=== PATIENT | female | born 1990 | race Hispanic/Latino ===

== ENCOUNTER 2021-07-21 01:53 | Day surgery (SDC) | payer OTHER, SELFPAY ==
--- NOTE | 2021-07-17 13:40 | PC.NURSE ---
Report to the Outpatient Waiting Room, entrance under the green pavilion located off [facility], at time _1030 on date _07/21/21 . OR Time: ___1230 . - You and your visitor will be asked a series of questions to screen for COVID 19 for your protection. - A mask is required within the hospital. Preoperative COVID Testing Requirements: No COVID Test needed if: (proof is required; if not received patient will have Rapid Test prior to entry) - Patient has received COVID Vaccine at least 14 days prior to procedure date or - Patient has positive COVID test result within last 90 days of surgery date. COVID Test needed if above criteria is not met If not COVID vaccinated a COVID test must be conducted within 72 hours of surgery and patient is asked to isolate self from time of testing until procedure. You will go to the [facility] for your COVID testing. The [facility] site is located at the corner of [address] [facility]. You will only be called if COVID results are positive and your surgeon may reschedule your elective surgery date. Patients may have clear liquids (water, carbonated beverages, clear teas, apple juice) until 3 hours prior to surgery with a maximum of 20 ounces. - No food from midnight until time of surgery - Infants may have breast milk until 4 hours before surgery, formula 6 hours prior to surgery. - Children will be allowed to drink immediately following surgery. If applicable, please bring a bottle or sippy cup to assist with drinking. Juice, water, soda, and popsicles are readily available. For infants on formula, please bring formula the day of surgery. Pacifiers are allowed. Take the following medications with a SIP of water the morning of surgery: _LAMOTRIGINE Medications to discontinue per physician ____ALL VITAMINS AND SUPPLEMENTS 3 DAYS PRE Date to take last dose___07/17/21 Please no make-up, nail bhutanese, hairspray, perfume, deodorant, or body powder the day of surgery. No jewelry (including any body piercings) or valuables the day of surgery, leave them at home. Please take a shower or bath the night before, or the morning of, surgery with an antibacterial soap. Wear comfortable, loose fitting clothing. Children are encouraged to wear pajamas. - Jewelry must be removed prior to entering the operating room. Rings and piercings that are not removed may be cut off. - The hospital will not accept responsibility for valuables. - Please leave all valuables, including medications, at home the day of surgery. If you are going home after surgery, a licensed student truck driver must drive you home. - NO public transportation without another adult. - We recommend that an adult stay with you for 24 hours following discharge. - We also recommend that you do not drive, make important decision, drink alcoholic beverages, or take any drugs that were not prescribed by your health care provider for at least 24 hours after your discharge time. For Pediatric surgeries, we recommend two adults accompany the child home (only one inside the building at this time). One visitor will be allowed to accompany the patient into the hospital. Patients visitor will be instructed to remain with patient at all times or leave the building. We will allow the visitor to come back to the postoperative area when patient is ready. Follow any additional instructions given to you from your surgeon. Telephone instructions given to __PATIENT and asked if any additional questions and then verbalized understanding. Patient advised to call surgeon office or pre surgery nurse liaison [phone] if any additional questions.
[2021-07-17 13:51] VITALS: BMI 27.1
[2021-07-21] VITALS (7 sets, daily range): BP systolic 101–121; BP diastolic 46–63; PULSE 77–104; RESP 10–16; TEMP 36.1–36.9; O2SAT 99–100
--- NOTE | 2021-07-21 11:16 | WPDHPUPDATE1 ---
History and Physical Update Update Date/Time: 07/21/21 11:16 History and Physical has been reviewed, including an updated exam of the patient. There are NO changes in the patient's condition. Risks, benefits, and alternatives have been discussed and questions answered. Patient agrees to proceed with procedure.
--- NOTE | 2021-07-21 11:34 | W.PM.PROC2 ---
Procedure Note - Detailed Date of Procedure 07/21/21 Pre-op Diagnosis hx of breast augmentation Post-op Diagnosis Same Procedure Performed Bilateral breast implant removal Surgeon Vipul Gill MD Anesthesia General Findings Previous implants 550cc silicone smooth. No evidence of rupture. Description of Procedure Preoperatively the risks, benefits, alternatives were discussed in extensive detail. I wanted her to be very realistic about the risks involved as well as expectations. Previously she had an axillary incision would like proceed without IMF for removal. She does not wish to use drains. She understands the date on this and understands there is risk of seroma which would ultimately need surgical intervention to drain. She is willing to accept this risk. I made sure answered all of her questions to her satisfaction today. We discussed aftercare with her and her . Consent obtained. Patient was taken to the operating room placed supine on the operating room table. Anesthesia provided by anesthesiology and prepped and draped in a standard sterile fashion. Surgical time-out was taken. 1% lidocaine and 0.25% Marcaine with epinephrine was used anesthetize locally. Fifteen blade used to make an IMF incision. Dissection was continued until the implant was identified and removed. I removed a portion of the capsule as well. Irrigated copiously with 3 L of saline on TUR tubing. I then closed using 2-0 Vicryl followed by 3-0 Monocryl in a running subcuticular 4-0 Monocryl and tissue glue. Surgical bra was placed. Patient was awoke and taken to the PACU without difficulty. All instrument sponge counts were correct at the end of the case. Estimated Blood Loss 15 Drains No Packing No Pathology None sent Complications No immediate complications Condition Stable Disposition PACU
--- NOTE | 2021-07-21 11:59 | WPDANESEPPF ---
Anes - Initial Pre Proc Eval Procedure: Operation Date: 07/21/21 12:30 Proposed Procedures p Removal Bilateral Breast Implants - Vipul Gill MD Date/Time: 07/21/21 11:59 Surgeon: Vipul Gill MD Pre Op Diagnosis: hx of breast augmentation Patient Data Age: 31 Gender: F Height: 1.57 m Weight: 69 kg Last Vital Signs Temp 98.5 F 07/21/21 10:52 Pulse 78 07/21/21 10:52 Resp 16 07/21/21 10:52 BP 115/46 L 07/21/21 10:52 Pulse Ox 100 07/21/21 10:52 Allergies Allergy/AdvReac Type Severity Reaction Status Date / Time latex Allergy Mild Rash Verified 07/17/21 13:27 aripiprazole [From Abilify] Allergy Unknown EDEMA AND Verified 07/17/21 13:29 RASH divalproex sodium Allergy Unknown EDEMA AND Verified 07/17/21 13:29 [From Depakote] RASH gabapentin Allergy EDEMA AND Verified 07/17/21 13:30 RASH olanzapine Allergy EDEMA AND Verified 07/17/21 13:31 RASH propranolol Allergy EDEMA AND Verified 07/17/21 13:31 RASH quetiapine [From Seroquel] Allergy EDEMA AND Verified 07/17/21 13:31 RASH risperidone Allergy EDEMA AND Verified 07/17/21 13:31 RASH sertraline Allergy EDEMA AND Verified 07/17/21 13:31 RASH tramadol Allergy EDEMA AND Verified 07/17/21 13:31 RASH trazodone Allergy EDEMA AND Verified 07/17/21 13:31 RASH Home Medications Medication Instructions Recorded Confirmed Type clonazepam 1 mg tablet 1 mg PO PRN PRN 04/10/21 07/21/21 History lamotrigine 100 mg tablet 100 mg PO DAILY 04/10/21 07/21/21 History prazosin 2 mg capsule 2 mg PO HS 04/10/21 07/21/21 History zolpidem 5 mg tablet 5 mg PO QHS PRN 04/10/21 07/21/21 History carisoprodol 350 mg tablet 350 mg PO TID PRN #21 tablet 07/05/21 07/21/21 Rx docusate sodium 100 mg capsule 100 mg PO DAILY #14 cap 07/05/21 07/21/21 Rx hydrocodone 5 mg-acetaminophen 325 1 tablet PO Q6H PRN #30 tablet 07/05/21 07/21/21 Rx mg tablet ondansetron HCl 4 mg tablet 4 mg PO Q8H #21 tablet 07/05/21 07/21/21 Rx cyanocobalamin (vitamin B-12) 1,000 mcg PO DAILY 07/17/21 07/21/21 History multivitamin with minerals 1 tablet PO DAILY 07/17/21 07/21/21 History [Hair,Skin and Nails] Patient hx anesthesia problems: none Family hx anesthesia problems: none Results Review: All pre-operative results and documents have been reviewed as part of the pre-operative evaluation. [facility] Past Medical History Medical History Anxiety Bipolar 1 disorder Fibromyalgia Overweight (BMI 25.0-29.9) Surgical History Surgical History Hx of breast implants, bilateral Social History Social History Smoking status: Never smoker Alcohol intake: current Substance use: current Substance use type: marijuana Other substance usage details: uses infrequently for back pain Last use: 06/26/21 Living arrangements: with family Spiritual care concerns: No Anes - Eval Final PreProcedure Day of Procedure 07/21/21 11:59 Patient weight: overweight Heart: regular rate and rhythm Lungs: clear to auscultation Airway: Mallampati scale class II Neurological: alert and oriented Last oral intake: >/= 8 hours ASA classification: III Emergent: no Anesthetic plan: proceed Anesthesia type and monitoring: general LMA Results Review: All pre-operative results and documents have been reviewed as part of the pre-operative evaluation. Informed Consent: The patient's anesthetic plan and its attendant risks and benefits were discussed with the patient/family/POA. Questions were solicited and answers provided to the satisfaction of the patient/family/POA.
[2021-07-21] MEDS: ceFAZolin 2 GM/D5W 50 ML 2 GM/50 ML BAG IVPB (12:05)
[2021-07-21] MEDS: BUPIVACAINE HCL 0.25% PF 30 ML VIAL INFILTRATE (12:10)
[2021-07-21] MEDS: LACTATED RINGERS 1,000 ML 30 ML IV CONT ×2 (12:52)
[2021-07-21] MEDS: fentaNYL CITRATE INJ (*CRX) 100 MCG/2 ML VIAL 25 MCG IV PUSH (13:23)
[2021-07-21] MEDS: ONDANSETRON INJ 4 MG/2 ML VIAL IV PUSH (13:28)
[2021-07-21] MEDS: oxyCODONE HCL (*CRX) 5 MG TAB IR PO (14:03)
== END 2021-07-21 14:34 | disposition home or self-care (01) ==
PROVIDERS: Visit Provider Surgery Plastic and Reconstructive Surgery
PROC: 0HPT0JZ Removal of Synthetic Substitute from Right Breast, Open Approach (ICD-10-PCS; CPT 19370; principal; 2021-07-21 12:30)
DX: Z45.811 Encounter for adjustment or removal of right breast implant (principal); Z45.812 Encounter for adjustment or removal of left breast implant; M79.7 Fibromyalgia; F31.9 Bipolar disorder, unspecified; F41.9 Anxiety disorder, unspecified; F12.90 Cannabis use, unspecified, uncomplicated
CPT/HCPCS: 19370; A9270; J0690; J1100; J1170; J2250; J2405; J2704; J3010; J7120